=== PATIENT | female | born 1980 | race American Indian/Alaskan Native ===

== ENCOUNTER 2016-09-18 16:09 | Emergency (ER) | payer SELFPAY ==
--- NOTE | 2016-09-18 16:48 | Emergency Department Report ---
Chief Complaint: Abdominal Pain Stated Complaint: ABD PAIN Time Seen by Provider: 09/18/16 16:48 - HPI History of Present Illness: Patient here complaining abdominal pain around her umbilicus and reported that she has a hernia when she was 2 years ago and said it feels like it's probably not. Patient says she has an umbilical hernia. Pain is intermittent and sharp. She says she has nausea around 3 times a week. Last menstrual period was 08/31/2016. Pain is 8 out of 10 and feels sharp and radiated into her left lower quadrant she said that this is been going on since which is 4 days ago. Denies fever or chills. Denies any urinary burning or urgency but says she has frequency which is not new. Denies any back pain. No vomiting or diarrhea. Patient has a history of congestive heart failure and high blood pressure and she said she received medication and was treated at [facility]. Denies any shortness of breath or chest pain. Says she took aspirin for pain minimal relief - ROS Review of Systems: All systems are negative unless stated in HPI above - Exam Vital Signs: Vital Signs 09/18/16 16:22 Temperature 98.6 F Pulse Rate 68 Respiratory 18 Rate Blood Pressure 134/92 O2 Sat by Pulse 99 Oximetry Physical Exam: Gen.: This is a 35-year-old female well-nourished well-developed in no acute distress. Abdomen: Soft, tender to palpate periumbilical hernia with umbilical hernia noted without any redness. Mild tenderness to palpate a hernia. Herniated soft. No CVA tenderness. MSE screening note: Focused history and physical exam performed. Due to findings the following was ordered:see mdm ED Medical Decision Making - Medical Decision Making MDM: Patient screened by provider in triage. Appropriate protocol ordered and patient awaiting to be seen by in main ED ED Disposition for MSE Condition: Stable Instructions: Abdominal Pain (ED)
[2016-09-18 17:30] LABS: Basophils % (Auto) 0.8 % (0.0-1.8); Eosinophils % (Auto) 1.9 % (0.0-4.3); Hematocrit 33.3 % (30.3-42.9); Hemoglobin 10.7 gm/dl (10.1-14.3); Mean Corpuscular HGB Conc 32 % (30-34); Mean Corpuscular Hemoglobin 23 pg (28-32); Mean Corpuscular Volume 73 fl (79-97); Platelet Count 220 K/mm3 (140-440); Red Blood Count 4.57 M/mm3 (3.65-5.03); Red Cell Distribution Width 19.2 % (13.2-15.2); White Blood Count 7.4 K/mm3 (4.5-11.0)
[2016-09-18 17:37] LABS: Bacteria,Urine 1+ /HPF (Negative); Bilirubin,Urine NEG (Negative); Blood,Urine SM (Negative); Ketones,Urine NEG (Negative); Leukocyte Esterase,Urine SM (Negative); Mucus,Urine 1+ /HPF; Nitrite,Urine NEG (Negative); Protein,Urine <15 mg/dL mg/dL (Negative); WBC,Urine < 1.0 /HPF (0.0-6.0)
[2016-09-18 17:40] LABS: Alanine Aminotransferase 21 units/L (7-56); Alkaline Phosphatase 110 units/L (35-129); Anion Gap 15 mmol/L; BUN/Creatinine Ratio 14.28; Blood Urea Nitrogen 10 mg/dL (7-17); Calcium 9.3 mg/dL (8.4-10.2); Carbon Dioxide 27 mmol/L (22-30); Chloride 100.6 mmol/L (98-107); Glucose 76 mg/dL (65-100); Lipase 37 units/L (13-60); Potassium 3.7 mmol/L (3.6-5.0); Sodium 139 mmol/L (137-145)
[2016-09-18] MEDS ORDERED: NORCO 5/325 PO ONE (21:49)
--- NOTE | 2016-09-18 22:05 | Emergency Department Report ---
HPI - General Chief Complaint: Abdominal Pain Time Seen by Provider: 09/18/16 16:48 - HPI HPI: 35-year-old Afro[place] female presents emergency Department with complaint of some periumbilical pain where she has a known umbilical hernia as well as some pain in the right side of the groin. She says it started , 4 days ago, but then went away. However it started again Sunday night, 3 days ago has been going on intermittently since. She denies any problems with bowel or bladder, numbness or paresthesias, vaginal bleeding or discharge. However the pain seems to radiate from the periumbilical area down to the right side of the groin. She is not taking anything for symptoms prior to presentation. She has a past medical history of CHF, hypertension. She has a past surgical history of and tubal ligation. The patient says that she has had a umbilical hernia for the past 2 years since she was . ED Past Medical Hx - Past Medical History Previous Medical History?: Yes Hx Hypertension: Yes Hx Congestive Heart Failure: Yes - Surgical History Additional Surgical History: c section, tubal ligation - Social History Smoking Status: Never Smoker Substance Use Type: Alcohol - Medications Home Medications: Home Medications Medication Instructions Recorded Confirmed Last Taken Type No Known Home Medications [No 09/18/16 09/18/16 Unknown History Reported Home Medications] ED Review of Systems ROS: Stated complaint: ABD PAIN Other details as noted in HPI Comment: All other systems reviewed and negative Constitutional: denies: chills, fever Eyes: denies: eye pain, eye discharge, vision change ENT: denies: ear pain, throat pain Respiratory: denies: cough, shortness of breath, wheezing Cardiovascular: denies: chest pain, palpitations Gastrointestinal: abdominal pain. denies: nausea, diarrhea Genitourinary: denies: urgency, dysuria, discharge Musculoskeletal: denies: back pain, joint swelling, arthralgia Skin: denies: rash, lesions Neurological: denies: headache, weakness, paresthesias Physical Exam - Physical Exam Vital Signs: Vital Signs 09/18/16 09/18/16 09/18/16 16:22 18:38 18:39 Temperature 98.6 F Pulse Rate 68 55 L 58 L Respiratory 18 15 14 Rate Blood Pressure 134/92 133/78 O2 Sat by Pulse 99 100 Oximetry 09/18/16 09/18/16 09/18/16 18:40 18:41 18:43 Temperature Pulse Rate 50 L 49 L 56 L Respiratory 9 L 14 14 Rate Blood Pressure 133/78 133/78 133/78 O2 Sat by Pulse 100 97 98 Oximetry 09/18/16 09/18/16 09/18/16 18:45 18:47 18:49 Temperature Pulse Rate 57 L 55 L 62 Respiratory 14 13 13 Rate Blood Pressure 133/78 133/78 133/78 O2 Sat by Pulse 99 100 100 Oximetry 09/18/16 09/18/16 09/18/16 18:51 18:53 18:54 Temperature Pulse Rate 57 L 55 L Respiratory 13 14 18 Rate Blood Pressure 133/78 133/78 O2 Sat by Pulse 100 100 100 Oximetry 09/18/16 09/18/16 09/18/16 18:55 18:57 18:59 Temperature Pulse Rate 56 L 57 L 57 L Respiratory 14 13 13 Rate Blood Pressure 133/78 133/78 133/78 O2 Sat by Pulse 100 100 99 Oximetry 09/18/16 09/18/16 09/18/16 19:00 19:01 19:03 Temperature Pulse Rate 59 L 60 54 L Respiratory 14 13 13 Rate Blood Pressure 125/80 125/80 125/80 O2 Sat by Pulse 99 98 99 Oximetry 09/18/16 09/18/16 09/18/16 19:05 19:07 19:09 Temperature Pulse Rate 53 L 57 L 54 L Respiratory 14 12 14 Rate Blood Pressure 125/80 125/80 125/80 O2 Sat by Pulse 98 99 98 Oximetry 09/18/16 09/18/16 09/18/16 19:11 19:13 19:15 Temperature Pulse Rate 55 L 54 L 55 L Respiratory 11 L 12 13 Rate Blood Pressure 125/80 125/80 125/80 O2 Sat by Pulse 98 99 99 Oximetry 09/18/16 09/18/16 09/18/16 19:17 19:19 19:21 Temperature Pulse Rate 55 L 56 L 53 L Respiratory 13 11 L 15 Rate Blood Pressure 125/80 125/80 125/80 O2 Sat by Pulse 100 98 100 Oximetry 09/18/16 09/18/16 09/18/16 19:23 19:25 19:27 Temperature Pulse Rate 55 L 55 L 56 L Respiratory 17 14 15 Rate Blood Pressure 125/80 125/80 125/80 O2 Sat by Pulse 100 100 95 Oximetry 09/18/16 09/18/16 09/18/16 19:29 19:30 19:31 Temperature Pulse Rate 56 L 62 58 L Respiratory 11 L 14 14 Rate Blood Pressure 125/80 126/74 126/74 O2 Sat by Pulse 99 100 99 Oximetry 09/18/16 09/18/16 09/18/16 19:33 19:35 19:37 Temperature Pulse Rate 56 L 53 L 51 L Respiratory 12 15 15 Rate Blood Pressure 126/74 126/74 126/74 O2 Sat by Pulse 99 100 99 Oximetry 09/18/16 09/18/16 09/18/16 19:39 19:41 19:43 Temperature Pulse Rate 53 L 53 L 54 L Respiratory 13 16 20 Rate Blood Pressure 126/74 126/74 126/74 O2 Sat by Pulse 98 100 98 Oximetry 09/18/16 09/18/16 09/18/16 19:45 19:47 19:49 Temperature Pulse Rate 52 L 52 L 53 L Respiratory 13 12 15 Rate Blood Pressure 126/74 126/74 126/74 O2 Sat by Pulse 100 100 99 Oximetry 09/18/16 09/18/16 09/18/16 19:51 19:53 19:55 Temperature Pulse Rate 52 L 53 L 53 L Respiratory 16 11 L 13 Rate Blood Pressure 126/74 126/74 126/74 O2 Sat by Pulse 99 100 99 Oximetry 09/18/16 09/18/16 09/18/16 19:57 19:59 20:01 Temperature Pulse Rate 60 56 L 59 L Respiratory 14 13 17 Rate Blood Pressure 126/74 126/74 119/68 O2 Sat by Pulse 100 100 98 Oximetry 09/18/16 09/18/16 09/18/16 20:03 20:05 20:06 Temperature Pulse Rate 66 59 L 58 L Respiratory 11 L 16 14 Rate Blood Pressure 119/68 119/68 119/68 O2 Sat by Pulse 98 100 100 Oximetry 09/18/16 09/18/16 09/18/16 20:12 20:13 20:15 Temperature Pulse Rate 73 54 L Respiratory 21 15 Rate Blood Pressure 119/68 119/68 119/68 O2 Sat by Pulse 97 88 99 Oximetry 09/18/16 09/18/16 09/18/16 20:17 20:19 20:21 Temperature Pulse Rate 55 L 54 L 52 L Respiratory 15 14 12 Rate Blood Pressure 119/68 119/68 119/68 O2 Sat by Pulse 100 100 100 Oximetry 09/18/16 09/18/16 09/18/16 20:23 20:25 20:27 Temperature Pulse Rate 51 L 52 L 52 L Respiratory 13 14 14 Rate Blood Pressure 119/68 119/68 119/68 O2 Sat by Pulse 100 71 L 92 Oximetry 09/18/16 09/18/16 09/18/16 20:29 20:30 20:31 Temperature Pulse Rate 54 L 54 L 55 L Respiratory 13 13 15 Rate Blood Pressure 119/68 122/68 122/68 O2 Sat by Pulse 98 100 100 Oximetry 09/18/16 09/18/16 09/18/16 20:33 20:35 20:37 Temperature Pulse Rate 53 L 63 63 Respiratory 15 23 16 Rate Blood Pressure 122/68 122/68 122/68 O2 Sat by Pulse 99 98 91 Oximetry 09/18/16 09/18/16 09/18/16 20:39 20:41 20:42 Temperature Pulse Rate 67 65 64 Respiratory 16 18 12 Rate Blood Pressure 122/68 122/68 119/68 O2 Sat by Pulse 97 100 100 Oximetry 09/18/16 09/18/16 09/18/16 20:43 20:45 20:47 Temperature Pulse Rate 64 67 75 Respiratory 13 12 17 Rate Blood Pressure 122/68 122/68 122/68 O2 Sat by Pulse 92 98 98 Oximetry 09/18/16 09/18/16 09/18/16 20:49 20:51 20:53 Temperature Pulse Rate 64 67 59 L Respiratory 11 L 11 L 13 Rate Blood Pressure 122/68 119/68 119/68 O2 Sat by Pulse 99 96 100 Oximetry 09/18/16 09/18/16 09/18/16 20:55 20:57 20:59 Temperature Pulse Rate 59 L 59 L 54 L Respiratory 22 14 13 Rate Blood Pressure 119/68 119/68 119/68 O2 Sat by Pulse 100 93 99 Oximetry 09/18/16 09/18/16 09/18/16 21:01 21:03 21:05 Temperature Pulse Rate 53 L 58 L 64 Respiratory 11 L 15 17 Rate Blood Pressure 128/77 128/77 128/77 O2 Sat by Pulse 100 100 100 Oximetry 09/18/16 09/18/1617 21:07 21:09 21:11 Temperature Pulse Rate 58 L 65 69 Respiratory 11 L 16 12 Rate Blood Pressure 128/77 128/77 128/77 O2 Sat by Pulse 100 100 96 Oximetry 09/18/16 09/18/16 09/18/16 21:13 21:15 21:17 Temperature Pulse Rate 63 63 64 Respiratory 10 L 10 L 9 L Rate Blood Pressure 128/77 128/77 128/77 O2 Sat by Pulse 99 100 99 Oximetry 09/18/16 09/18/16 09/18/16 21:19 21:21 21:23 Temperature Pulse Rate 64 66 62 Respiratory 12 13 13 Rate Blood Pressure 128/77 122/68 122/68 O2 Sat by Pulse 99 100 99 Oximetry Physical Exam: GENERAL: The patient is well-developed well-nourished. HEENT: Normocephalic. Atraumatic. Extraocular motions are intact. Patient has moist mucous membranes. Pupils equal reactive to light bilaterally. NECK: Supple. Trachea is midline. CHEST/LUNGS: Clear to auscultation. There is no respiratory distress noted. HEART/CARDIOVASCULAR: Regular. There is no tachycardia. There is no gallop rub or murmur. ABDOMEN: Abdomen is soft, nontender. Patient has normal bowel sounds. There is no abdominal distention. There is a soft reducible umbilical hernia. Obese habitus. SKIN: Skin is warm and dry. NEURO: The patient is awake, alert, and oriented. The patient is cooperative. The patient has no focal neurologic deficits. The patient has normal speech. MUSCULOSKELETAL: There is no tenderness or deformity. There is no limitation range of motion. There is no evidence of acute injury. ED Course Vital Signs 09/18/16 09/18/16 09/18/16 16:22 18:38 18:39 Temperature 98.6 F Pulse Rate 68 55 L 58 L Respiratory 18 15 14 Rate Blood Pressure 134/92 133/78 O2 Sat by Pulse 99 100 Oximetry 09/18/16 09/18/16 09/18/16 18:40 18:41 18:43 Temperature Pulse Rate 50 L 49 L 56 L Respiratory 9 L 14 14 Rate Blood Pressure 133/78 133/78 133/78 O2 Sat by Pulse 100 97 98 Oximetry 09/18/16 09/18/16 09/18/16 18:45 18:47 18:49 Temperature Pulse Rate 57 L 55 L 62 Respiratory 14 13 13 Rate Blood Pressure 133/78 133/78 133/78 O2 Sat by Pulse 99 100 100 Oximetry 09/18/16 09/18/16 09/18/16 18:51 18:53 18:54 Temperature Pulse Rate 57 L 55 L Respiratory 13 14 18 Rate Blood Pressure 133/78 133/78 O2 Sat by Pulse 100 100 100 Oximetry 09/18/16 09/18/16 09/18/16 18:55 18:57 18:59 Temperature Pulse Rate 56 L 57 L 57 L Respiratory 14 13 13 Rate Blood Pressure 133/78 133/78 133/78 O2 Sat by Pulse 100 100 99 Oximetry 09/18/16 09/18/16 09/18/16 19:00 19:01 19:03 Temperature Pulse Rate 59 L 60 54 L Respiratory 14 13 13 Rate Blood Pressure 125/80 125/80 125/80 O2 Sat by Pulse 99 98 99 Oximetry 09/18/16 09/18/16 09/18/16 19:05 19:07 19:09 Temperature Pulse Rate 53 L 57 L 54 L Respiratory 14 12 14 Rate Blood Pressure 125/80 125/80 125/80 O2 Sat by Pulse 98 99 98 Oximetry 09/18/16 09/18/16 09/18/16 19:11 19:13 19:15 Temperature Pulse Rate 55 L 54 L 55 L Respiratory 11 L 12 13 Rate Blood Pressure 125/80 125/80 125/80 O2 Sat by Pulse 98 99 99 Oximetry 09/18/16 09/18/16 09/18/16 19:17 19:19 19:21 Temperature Pulse Rate 55 L 56 L 53 L Respiratory 13 11 L 15 Rate Blood Pressure 125/80 125/80 125/80 O2 Sat by Pulse 100 98 100 Oximetry 09/18/16 09/18/16 09/18/16 19:23 19:25 19:27 Temperature Pulse Rate 55 L 55 L 56 L Respiratory 17 14 15 Rate Blood Pressure 125/80 125/80 125/80 O2 Sat by Pulse 100 100 95 Oximetry 09/18/16 09/18/16 09/18/16 19:29 19:30 19:31 Temperature Pulse Rate 56 L 62 58 L Respiratory 11 L 14 14 Rate Blood Pressure 125/80 126/74 126/74 O2 Sat by Pulse 99 100 99 Oximetry 09/18/16 09/18/16 09/18/16 19:33 19:35 19:37 Temperature Pulse Rate 56 L 53 L 51 L Respiratory 12 15 15 Rate Blood Pressure 126/74 126/74 126/74 O2 Sat by Pulse 99 100 99 Oximetry 09/18/16 09/18/16 09/18/16 19:39 19:41 19:43 Temperature Pulse Rate 53 L 53 L 54 L Respiratory 13 16 20 Rate Blood Pressure 126/74 126/74 126/74 O2 Sat by Pulse 98 100 98 Oximetry 09/18/16 09/18/16 09/18/16 19:45 19:47 19:49 Temperature Pulse Rate 52 L 52 L 53 L Respiratory 13 12 15 Rate Blood Pressure 126/74 126/74 126/74 O2 Sat by Pulse 100 100 99 Oximetry 09/18/16 09/18/16 09/18/16 19:51 19:53 19:55 Temperature Pulse Rate 52 L 53 L 53 L Respiratory 16 11 L 13 Rate Blood Pressure 126/74 126/74 126/74 O2 Sat by Pulse 99 100 99 Oximetry 09/18/16 09/18/16 09/18/16 19:57 19:59 20:01 Temperature Pulse Rate 60 56 L 59 L Respiratory 14 13 17 Rate Blood Pressure 126/74 126/74 119/68 O2 Sat by Pulse 100 100 98 Oximetry 09/18/16 09/18/16 09/18/16 20:03 20:05 20:06 Temperature Pulse Rate 66 59 L 58 L Respiratory 11 L 16 14 Rate Blood Pressure 119/68 119/68 119/68 O2 Sat by Pulse 98 100 100 Oximetry 09/18/16 09/18/16 09/18/16 20:12 20:13 20:15 Temperature Pulse Rate 73 54 L Respiratory 21 15 Rate Blood Pressure 119/68 119/68 119/68 O2 Sat by Pulse 97 88 99 Oximetry 09/18/16 09/18/16 09/18/16 20:17 20:19 20:21 Temperature Pulse Rate 55 L 54 L 52 L Respiratory 15 14 12 Rate Blood Pressure 119/68 119/68 119/68 O2 Sat by Pulse 100 100 100 Oximetry 09/18/16 09/18/16 09/18/16 20:23 20:25 20:27 Temperature Pulse Rate 51 L 52 L 52 L Respiratory 13 14 14 Rate Blood Pressure 119/68 119/68 119/68 O2 Sat by Pulse 100 71 L 92 Oximetry 09/18/16 09/18/16 09/18/16 20:29 20:30 20:31 Temperature Pulse Rate 54 L 54 L 55 L Respiratory 13 13 15 Rate Blood Pressure 119/68 122/68 122/68 O2 Sat by Pulse 98 100 100 Oximetry 09/18/16 09/18/16 09/18/16 20:33 20:35 20:37 Temperature Pulse Rate 53 L 63 63 Respiratory 15 23 16 Rate Blood Pressure 122/68 122/68 122/68 O2 Sat by Pulse 99 98 91 Oximetry 09/18/16 09/18/16 09/18/16 20:39 20:41 20:42 Temperature Pulse Rate 67 65 64 Respiratory 16 18 12 Rate Blood Pressure 122/68 122/68 119/68 O2 Sat by Pulse 97 100 100 Oximetry 09/18/16 09/18/16 09/18/16 20:43 20:45 20:47 Temperature Pulse Rate 64 67 75 Respiratory 13 12 17 Rate Blood Pressure 122/68 122/68 122/68 O2 Sat by Pulse 92 98 98 Oximetry 09/18/16 09/18/16 09/18/16 20:49 20:51 20:53 Temperature Pulse Rate 64 67 59 L Respiratory 11 L 11 L 13 Rate Blood Pressure 122/68 119/68 119/68 O2 Sat by Pulse 99 96 100 Oximetry 09/18/16 09/18/16 09/18/16 20:55 20:57 20:59 Temperature Pulse Rate 59 L 59 L 54 L Respiratory 22 14 13 Rate Blood Pressure 119/68 119/68 119/68 O2 Sat by Pulse 100 93 99 Oximetry 09/18/16 09/18/16 09/18/16 21:01 21:03 21:05 Temperature Pulse Rate 53 L 58 L 64 Respiratory 11 L 15 17 Rate Blood Pressure 128/77 128/77 128/77 O2 Sat by Pulse 100 100 100 Oximetry 09/18/16 09/18/16 09/18/16 21:07 21:09 21:11 Temperature Pulse Rate 58 L 65 69 Respiratory 11 L 16 12 Rate Blood Pressure 128/77 128/77 128/77 O2 Sat by Pulse 100 100 96 Oximetry 09/18/16 09/18/16 09/18/16 21:13 21:15 21:17 Temperature Pulse Rate 63 63 64 Respiratory 10 L 10 L 9 L Rate Blood Pressure 128/77 128/77 128/77 O2 Sat by Pulse 99 100 99 Oximetry 09/18/16 09/18/16 09/18/16 21:19 21:21 21:23 Temperature Pulse Rate 64 66 62 Respiratory 12 13 13 Rate Blood Pressure 128/77 122/68 122/68 O2 Sat by Pulse 99 100 99 Oximetry ED Medical Decision Making - Lab Data Result diagrams: 09/18/16 17:10 09/18/16 17:10 - Radiology Data Radiology results: report reviewed, image reviewed interpreted by me: Abdominal x-ray shows nonspecific nonobstructive bowel gas. Transvaginal/pelvic ultrasound does not show any signs of torsion or any acute process. There is a 2 cm left-sided ovarian cyst. - Medical Decision Making 35-year-old female presents the emergency department with complaint of periumbilical pain secondary to her umbilical hernia but with some radiation of pain towards the right side of the groin. Labs are mostly unremarkable and does not show any etiology of the patient's symptoms. She is not and there is no urinary tract infection. She does not have any complaints of any vaginal bleeding, discharge or dysuria. Since the patient has some pain towards the groin, an ultrasound was done to rule out torsion and look for any other etiology of her symptoms but it only showed a left ovarian cyst and otherwise no acute process. Abdominal x-ray shows nonspecific nonobstructive bowel gas. The hernia is reducible. For these reasons the patient appears safe for discharge home. She will be given a referral for general surgery for possible outpatient hernia repair. She will return to the emergency department with any worsening of her symptoms or any acute distress. - Differential Diagnosis hernia, colitis, UTI, ovarian cyst Critical Care Time: No Critical care attestation.: If time is entered above; I have spent that time in minutes in the direct care of this critically ill patient, excluding procedure time. ED Disposition Clinical Impression: Ovarian cyst Umbilical hernia Qualifiers: Obstruction and gangrene presence: without obstruction or gangrene Qualified Code(s): K42.9 - Umbilical hernia without obstruction or gangrene Groin pain Qualifiers: Laterality: right Qualified Code(s): R10.31 - Right lower quadrant pain Disposition: - TO HOME OR SELFCARE Is pt being admited?: No Condition: Stable Instructions: Umbilical Hernia (ED), Abdominal Pain (ED) Additional Instructions: Please follow-up with your primary care physician and [facility] as necessary. I have given you a referral for a local general surgeon, Dr. Peres, to establish care regarding your umbilical hernia as you may need outpatient surgical repair in the future. Return to the emergency department immediately if the hernia is not reducible, becomes firm, changes color or has a significant increase in urinary discomfort. Referrals: PRIMARY CARE, [Primary Care Provider] - 3-5 Days MEL GAMEZ MD [Staff Physician] - 3-5 Days Time of Disposition: 23:38
--- NOTE | 2016-09-18 23:21 | Ultrasound Report ---
FINAL REPORT EXAM: US TRANSVAGINAL HISTORY: pelvic pain TECHNIQUE: Ultrasound pelvis transvaginal PRIORS: None. FINDINGS: Uterus is 11.7 x 5.1 x 6.4 centimeters. There is normal echogenicity. Endometrial thickness is 0.79 centimeters. The right ovary is 2.7 x 1.8 x 2.1 centimeters. There is normal sonographic appearance. Left ovary is 4.4 x 2.2 x 2.3 centimeters. There is a 2 centimeter left ovarian cyst. No free fluid identified in the cul-de-sac IMPRESSION: 2 centimeter left ovarian cyst likely physiologic Otherwise negative study.
--- NOTE | 2016-09-18 23:23 | Ultrasound Report ---
FINAL REPORT EXAM: US PELVIC COMPLETE HISTORY: pelvic pain TECHNIQUE: Ultrasound pelvis transabdominal PRIORS: None. FINDINGS: Uterus is 11.7 x 5.1 x 6.4 centimeters. There is normal echogenicity. Endometrial thickness is 0.79 centimeters. The right ovary is 2.7 x 1.8 x 2.1 centimeters. There is normal sonographic appearance. Left ovary is 4.4 x 2.2 x 2.3 centimeters. There is a 2 centimeter left ovarian cyst. No free fluid identified in the cul-de-sac IMPRESSION: 2 centimeter left ovarian cyst likely physiologic Otherwise negative study.
[2016-09-18 23:54] VITALS: BP 119/74
--- NOTE | 2016-09-19 08:11 | XRay Report ---
ABDOMEN TWO VIEWS: 09/18/16 21:48:00 CLINICAL: Abdominal pain. COMPARISON:None. FINDINGS: Supine upright views demonstrate a normal bowel gas pattern. Moderate stool throughout the colon. Gas in the rectum. No distended bowel and no air-fluid levels. No pneumoperitoneum. No mass or suspicious calcifications. The bones and soft tissues are normal. IMPRESSION: Negative abdomen.
== END 2016-09-18 23:53 | disposition home or self-care (01) ==
LOC: ED 16:09
DX: N83.209 Unspecified ovarian cyst, unspecified side (principal); K42.9 Umbilical hernia without obstruction or gangrene; I10 Essential (primary) hypertension; I50.9 Heart failure, unspecified
CPT/HCPCS: 36415; 74020; 76830; 76856; 80053; 81001; 83690; 84703; 85025